=== PATIENT | male | born 1945 | race Caucasian/White ===

== ENCOUNTER 2018-10-15 08:35 | Emergency (ER) | payer OTHER, MEDICAID ==
[2018-10-15] MEDS ORDERED: KETOROLAC 30 MG INJ IM (09:27)
[2018-10-15] MEDS ORDERED: HYDROCODONE/APAP (5/325) TAB PO (09:30)
[2018-10-15] MEDS: KETOROLAC 60 MG INJ IM (09:38)
== END 2018-10-15 10:59 | disposition home or self-care (01) ==
LOC: FTE 08:35
DX: M48.061 Spinal stenosis, lumbar region without neurogenic claudication (principal); R91.1 Solitary pulmonary nodule; E11.9 Type 2 diabetes mellitus without complications; I10 Essential (primary) hypertension
CPT/HCPCS: 72131; 96372; 99285-25